=== PATIENT | female | born 1945 | race Caucasian/White ===

== ENCOUNTER 2017-04-03 16:13 | Inpatient (IN) | payer MEDICARE ==
[~2017-04-03] VITALS: Ht 152.4 cm; Wt 64.1 kg
[2017-04-04] MEDS ORDERED: HYDR25TA5 PO (10:16)
[2017-04-04] MEDS ORDERED: GABA100C4 PO (10:16)
[2017-04-04] MEDS ORDERED: LOSA100T PO (10:16)
[2017-04-04] MEDS ORDERED: ATOR40TA16 PO (10:16)
[2017-04-04] MEDS ORDERED: ASPI81TA11 PO (10:17)
[2017-04-04] MEDS ORDERED: CHOL5000 PO (10:19)
[2017-04-04] MEDS ORDERED: MULTTAB67 PO (10:19)
[2017-04-04] MEDS ORDERED: MILK175C7 PO (10:19)
[2017-04-04] MEDS ORDERED: CO Q100C9 PO (10:19)
[2017-04-07 06:24] VITALS: BP 128/69; PULSE 71; RESP 20; TEMP 98.6; O2SAT 99
[2017-04-07] MEDS ORDERED: ceFAZolin INJ 1,000 MG VIAL ONE (06:38)
[2017-04-07] MEDS ORDERED: SODIUM CHLORIDE 0.9% INJ 100 ML ONE (06:38)
[2017-04-07] MEDS ORDERED: HEPARIN SODIUM - SQ 10,000 UNITS/ML VIAL ONE (06:38)
[2017-04-07] MEDS ORDERED: SUGAMMADEX SODIUM 200 MG/2 ML VIAL IV PUSH ONE ×2 (06:51)
[2017-04-07] MEDS ORDERED: HYDROmorphone HCL PF 2 MG/ML VIAL ONE (06:51)
[2017-04-07] MEDS ORDERED: LACTATED RINGER'S 1000 ML IV PRN (07:00)
[2017-04-07] MEDS ORDERED: POVIDONE IODINE 5% (ANTISEPSIS KIT) 4 APPLICATIONS EACH NARE PRN (07:00)
[2017-04-07] MEDS ORDERED: SODIUM CHLORID 0.9% 500 ML IV PRN (07:00)
[2017-04-07] MEDS ORDERED: ceFAZolin 1,000 MG/NS 100 ML IV SCH ×2 (07:00)
[2017-04-07] MEDS ORDERED: METOPROLOL TARTRATE 25 MG TAB PO PRN (07:00)
[2017-04-07] MEDS ORDERED: INSULIN HUMAN REGULAR 1,000 UNITS/10 ML VIAL SQ PRN (07:00)
[2017-04-07] MEDS ORDERED: HEPARIN SODIUM - SQ 10,000 UNITS/ML VIAL SQ SCH (07:00)
[2017-04-07] MEDS ORDERED: CHLORHEXIDINE GLUCONATE 2 % 1 PACK (2 CLOTHS) TOPICAL PRN (07:00)
[2017-04-07] MEDS ORDERED: LIDOCAINE 1.5%/EPINEPHrine 1:200,000 PF SOLN 30 ML AMP INFIL ONE (08:29)
[2017-04-07] MEDS ORDERED: LACTATED RINGER'S 1000 ML INJ 2,000 ML IV ONE (12:00)
[2017-04-07] MEDS ORDERED: PROPOFOL 200 MG/20 ML AMP IV ONE (12:00)
[2017-04-07] MEDS ORDERED: ONDANSETRON HCL 4 MG/2 ML VIAL IV PUSH ONE (12:00)
[2017-04-07] MEDS ORDERED: PHENYLEPH/NS 1000 MCG/10 ML SYR IV ONE (12:00)
[2017-04-07] MEDS ORDERED: ePHEDrine/NS 25 MG/5 ML SYR IV ONE (12:00)
[2017-04-07] MEDS ORDERED: DO NOT ADM ANY ANTICOAGULANT DRUGS PRN (14:25)
[2017-04-07] MEDS ORDERED: diphenhydrAMINE HCL 25 MG CAP PO PRN (14:30)
[2017-04-07] MEDS ORDERED: LORazepam 0.5 MG TAB PO PRN (14:30)
[2017-04-07] MEDS ORDERED: ONDANSETRON HCL 4 MG/2 ML VIAL IVP PRN (14:30)
[2017-04-07] MEDS ORDERED: SODIUM CHLORIDE 0.9% FLUSH 10 ML FLUSH IV FLUSH PRN (14:30)
[2017-04-07] MEDS ORDERED: fentaNYL CITRATE 250 MCG/5 ML AMP ONE (14:38)
[2017-04-07] MEDS ORDERED: *morphine SULFATE 8 MG/ML PERIprocedure ONLY ONE (14:40)
[2017-04-07] MEDS: KETOROLAC TROMETHAMINE 30 MG/ML (IVP) VIAL IVP SCH ×2 (14:42→23:17)
[2017-04-07] MEDS ORDERED: *MEPERIDINE 25 MG INJ VIAL PERIprocedural Use ONLY ONE (14:49)
[2017-04-07] MEDS: D5-1/2 NS + KCL 20 MEQ INJ 1,000 ML IV SCH (15:09)
[2017-04-07 16:00] VITALS: BP 125/71; PULSE 85; RESP 15; TEMP 96.5; O2SAT 100
--- NOTE | 2017-04-07 16:36 | PD.ONC.PN ---
Subjective Subjective Remarks post op note pt is resting in bed states she is having some abdominal pain denies n/v using IS deng with clear yellow urine Objective Data Date Time Temp Pulse Resp B/P Pulse Ox O2 Delivery O2 Flow Rate FiO2 04/07/17 16:00 96.5 85 15 125/71 100 04/07/17 15:45 97.7 88 14 110/56 100 Nasal Cannula 2 04/07/17 15:30 90 13 112/59 100 Nasal Cannula 2 04/07/17 15:15 93 13 111/57 98 Nasal Cannula 2 04/07/17 15:00 95 12 115/52 100 Nasal Cannula 2 04/07/17 14:45 95 12 130/59 100 Nasal Cannula 2 04/07/17 14:30 100 21 119/56 100 Nasal Cannula 2 04/07/17 14:29 98.2 100 20 122/60 100 Nasal Cannula 2 04/07/17 06:24 98.6 71 20 128/69 99 04/07/17 04/07/17 04/07/17 06:59 14:59 22:59 Intake Total 2500 ml 284 ml Output Total 1020 ml 90 ml Balance 1480 ml 194 ml Laboratory Results Laboratory Tests Test 04/07/17 04/07/17 04/07/17 06:22 08:40 10:14 Blood Type O NEGATIVE O NEGATIVE O NEGATIVE Antibody Screen NEGATIVE Blood Bank Comment Crossmatch Leukocyte-Reduced Red Blood Cells Administered Medications Medications (Trade) Dose Ordered Sig/Alonso Route PRN Reason Start Time Stop Time Status Last Admin Dose Admin Potassium Chloride/Dextrose/ Sod Cl (D5-1/2 NS + KCl 20 Meq Inj) 1,000 ml @ 100 mls/hr Q10H IV 04/07/17 14:18 04/07/17 15:09 Ketorolac Tromethamine (Toradol Inj) 15 mg Q6H IVP 04/07/17 14:30 04/08/17 08:31 04/07/17 14:42 Objective Remarks GENERAL: Well-nourished, well-developed patient. SKIN: Warm and dry. HEAD: Normocephalic. EYES: No scleral icterus. No injection or drainage. CARDIOVASCULAR: Regular rate and rhythm without murmurs. RESPIRATORY: Breath sounds equal bilaterally. No accessory muscle use. GASTROINTESTINAL: Abdomen soft, nondistended, SS are c/d/i EXTREMITIES:TEDs MUSCULOSKELETAL: Adequate muscle tone. NEUROLOGICAL: No obvious focal deficit. Awake, alert, and oriented x3. PSYCHIATRIC: Appropriate mood and affect; insight and judgment normal. Assessment/Plan Problem List: (1) Ovarian cancer Status: Acute (2) Postoperative state Status: Acute Plan: S/P RA lap hyst with BSO and omentectomy post op orders are in the chart IS at bedside and pt using IVF ADAT, clear liquids at this time OK to get OOB to chair this evening Percocet and Toradol for pain anticipate discharge in the morning Lakisha Denney [facility] Apr 07, 2017 16:36
[2017-04-07] MEDS: oxyCODONE/ACETAMINOPHEN 5 MG/325 MG TAB PO PRN (16:56)
[2017-04-07 20:00] VITALS: BP 110/54; PULSE 85; RESP 16; TEMP 97.8; O2SAT 99
[2017-04-07] MEDS: SODIUM CHLORIDE 0.9% FLUSH 10 ML FLUSH IV FLUSH SCH (21:00)
[2017-04-07] MEDS: GABAPENTIN 100 MG CAP PO SCH (23:17)
[2017-04-08] VITALS: BP 107/56; PULSE 83; RESP 17; TEMP 96.9; O2SAT 99
[2017-04-08] MEDS: D5-1/2 NS + KCL 20 MEQ INJ 1,000 ML IV SCH ×3 (00:18→20:18)
[2017-04-08] MEDS: oxyCODONE/ACETAMINOPHEN 5 MG/325 MG TAB PO PRN ×6 (03:55→22:09)
[2017-04-08] MEDS: KETOROLAC TROMETHAMINE 30 MG/ML (IVP) VIAL IVP SCH ×2 (03:55→08:24)
[2017-04-08 04:00] VITALS: BP 94/53; PULSE 72; RESP 17; TEMP 96.5; O2SAT 100
[2017-04-08] MEDS ORDERED: OXYC1TAB63 PO (07:42)
[2017-04-08 07:43] LABS: AUTOMATED NEUTROPHIL # 5.1 TH/MM3 (1.8-7.7); BASOPHIL % 0.4 % (0.0-2.0); EOSINOPHIL % 0.1 % (0.0-4.0); HEMATOCRIT 28.3 % (35.0-46.0); HEMO FLAGS DIFF FINAL; LYMPH % 16.9 % (9.0-44.0); LYMPHOCYTE # 1.2 TH/MM3 (1.0-4.8); MEAN CELL VOLUME 90.1 FL (80.0-100.0); MEAN CORPUSCULAR HEMOGLOBIN 31.8 PG (27.0-34.0); MEAN CORPUSCULAR HGB CONC 35.3 % (32.0-36.0); MONO % 13.4 % (0.0-8.0); NEUT % 69.2 % (16.0-70.0); PLATELET COUNT 212 TH/MM3 (150-450); RED BLOOD COUNT 3.14 MIL/MM3 (4.00-5.30); RED CELL DISTRIBUTION WIDTH 13.7 % (11.6-17.2); WHITE BLOOD COUNT 7.4 TH/MM3 (4.0-11.0)
[2017-04-08 08:00] VITALS: BP 98/54; PULSE 70; RESP 18; TEMP 96.6; O2SAT 100
[2017-04-08 08:10] LABS: BICARBONATE 29.5 MEQ/L (21.0-32.0); POTASSIUM 3.5 MEQ/L (3.5-5.1)
[2017-04-08] MEDS: SODIUM CHLORIDE 0.9% FLUSH 10 ML FLUSH IV FLUSH SCH ×2 (08:24→22:09)
[2017-04-08] MEDS: ATORVASTATIN 40 MG TAB PO SCH (08:24)
[2017-04-08] MEDS: HYDROCHLOROTHIAZIDE 25 MG TAB PO SCH (08:44)
[2017-04-08] MEDS: LOSARTAN 50 MG TAB PO SCH (08:44)
[2017-04-08 12:00] VITALS: BP 97/56; PULSE 72; RESP 18; TEMP 97; O2SAT 99
[2017-04-08 16:00] VITALS: BP 110/55; PULSE 75; RESP 15; TEMP 96.8; O2SAT 98
[2017-04-08 20:00] VITALS: BP 99/52; PULSE 77; RESP 18; TEMP 97.4; O2SAT 97
[2017-04-08] MEDS: GABAPENTIN 100 MG CAP PO SCH (22:09)
[2017-04-09] VITALS: BP 107/54; PULSE 82; RESP 18; TEMP 97.8; O2SAT 97
[2017-04-09 04:00] VITALS: BP 131/61; PULSE 90; RESP 18; TEMP 97.7; O2SAT 96
[2017-04-09] MEDS: D5-1/2 NS + KCL 20 MEQ INJ 1,000 ML IV SCH ×2 (05:13→16:18)
[2017-04-09] MEDS: oxyCODONE/ACETAMINOPHEN 5 MG/325 MG TAB PO PRN ×3 (07:08→16:30)
--- NOTE | 2017-04-09 07:16 | PD.ONC.PN ---
Subjective Subjective Remarks POD #2 pt is sitting along side of the bed c/o abdominal pain has not had any Percocet since 10pm Spoke with RN and will evaluate later in regards to discharge educated pt on taking pain meds OTC before the pain becomes acute and the use of stool softeners while taking narcotics. 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 will get case management to arrange for HH to help with medication management, wound assessment and OT/PT Objective Data Date Time Temp Pulse Resp B/P Pulse Ox O2 Delivery O2 Flow Rate FiO2 04/09/17 04:00 97.7 90 18 131/61 96 04/09/17 00:00 97.8 82 18 107/54 97 04/08/17 20:00 97.4 77 18 99/52 97 04/08/17 16:00 96.8 75 15 110/55 98 04/08/17 12:00 97.0 72 18 97/56 99 04/08/17 08:00 96.6 70 18 98/54 100 04/09/17 04/09/17 04/09/17 07:00 15:00 23:00 Intake Total 600 ml Output Total 1000 ml Balance -400 ml Result Diagram: 04/08/1733 04/08/17632 Administered Medications Medications (Trade) Dose Ordered Sig/Alonso Route PRN Reason Start Time Stop Time Status Last Admin Dose Admin Atorvastatin Calcium (Lipitor) 40 mg DAILY PO 04/08/17 09:00 04/08/17 08:24 Gabapentin 100 mg 100 mg HS PO 04/07/17 21:00 04/08/17 22:09 Potassium Chloride/Dextrose/ Sod Cl (D5-1/2 NS + KCl 20 Meq Inj) 1,000 ml @ 100 mls/hr Q10H IV 04/07/17 14:18 04/08/17 00:18 Sodium Chloride (NS Flush) 2 ml BID IV FLUSH 04/07/17 21:00 04/08/17 22:09 Oxycodone/ Acetaminophen (Percocet 5-325 Mg) 1 tab Q4H PRN PO PAIN SCALE 1 TO 5 04/07/17 14:30 04/08/17 22:09 Oxycodone/ Acetaminophen (Percocet 5-325 Mg) 2 tab Q4H PRN PO PAIN SCALE 6 TO 10 04/07/17 14:30 04/09/17 07:08 Objective Remarks GENERAL: Well-nourished, well-developed patient in mild distress d/t abd pain SKIN: Warm and dry. HEAD: Normocephalic. EYES: No scleral icterus. No injection or drainage. CARDIOVASCULAR: Regular rate and rhythm without murmurs. RESPIRATORY: Breath sounds equal bilaterally. No accessory muscle use. GASTROINTESTINAL: Abdomen soft, generalized pain, SS are C/D/I EXTREMITIES: No cyanosis, or edema. MUSCULOSKELETAL: Adequate muscle tone. NEUROLOGICAL: No obvious focal deficit. Awake, alert, and oriented x3. PSYCHIATRIC: Appropriate mood and affect; insight and judgment normal. Assessment/Plan Problem List: (1) Ovarian cancer Status: Acute (2) Postoperative state Status: Acute Plan: POD #2 RA lap hyst with BSO and omentectomy post op orders are in the chart IS at bedside and pt using IVF regular diet Percocet OTC for pain will add Colace consult case management for to help with wound assessment, pt/ot, and medication management Lakisha Denney Apr 09, 2017 07:16
--- NOTE | 2017-04-09 07:30 | HHI.FF ---
Face to Face Verification Diagnosis: (1) Ovarian cancer (2) Postoperative state Physical Therapy Order: Evaluate and Treat Occupational Therapy Order: Evaluate and Treat, Improve ADL Instructions: Pt is post op and will need education on how to self transfer in and out of bed. Home Health Nursing Order: Medication education-adverse effect Wound care and dressing changes Home Health Aide Order: To Assist In: Bathing and personal care Senior Sales Manager Order: To Evaluate: Support services I have seen patient Bhargavi Briones on 04/09/17. 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 She has concerns about being able to recover from surgery and care for herself as well as taking care of her parents. Lakisha Denney Apr 09, 2017 07:29
[2017-04-09 08:34] VITALS: BP 129/61; PULSE 73; RESP 20; TEMP 97.5; O2SAT 98
[2017-04-09] MEDS: SODIUM CHLORIDE 0.9% FLUSH 10 ML FLUSH IV FLUSH SCH ×2 (09:00→12:22)
[2017-04-09] MEDS ORDERED: DOCUSATE SODIUM 100 MG CAP PO SCH (09:00)
[2017-04-09] MEDS: ATORVASTATIN 40 MG TAB PO SCH (09:22)
[2017-04-09] MEDS: HYDROCHLOROTHIAZIDE 25 MG TAB PO SCH (09:22)
[2017-04-09] MEDS: LOSARTAN 50 MG TAB PO SCH (09:22)
[2017-04-09] MEDS ORDERED: KETOROLAC TROMETHAMINE 60 MG/2 ML (IM) VIAL IM ONE (11:00)
[2017-04-09 12:07] VITALS: BP 109/52; PULSE 76; RESP 21; TEMP 96.5; O2SAT 98
[2017-04-09 16:09] VITALS: BP 110/61; PULSE 70; RESP 20; TEMP 97.9; O2SAT 97
--- NOTE | 2017-04-12 20:30 | MD ---
cc: FAB NEWMAN MD,MAVERICK OKEEFE,JONAH SHORT M.D. ADMISSION DATE: 04/07/2017 DISCHARGE DATE: 04/09/2017 PROCEDURE 04/07/2017 robotic-assisted laparoscopic hysterectomy, bilateral salpingo-oophorectomy, omentectomy, resection of tumor, right ureteral lysis for surgical management of ovarian cancer. HOSPITAL COURSE She did well early in hospitalization. She tolerated oral intake. Villafuerte catheter removed, voiding pending. Ins and outs 3624/2210. LABORATORY DATA H&H 10.0, 28.3. White count 7.4, platelets 212. Electrolytes pending. PHYSICAL EXAMINATION VITAL SIGNS: Afebrile, pulse 72-85, respirations 15-17, blood pressure 94-125 over 53-79, O2 saturations greater than 99%. GENERAL: Alert and oriented x3. LUNGS: Lungs are clear except for mild basilar rales. CARDIOVASCULAR: Paced, regular rate and rhythm. ABDOMEN: Soft. Incisions clean and dry. PIPELAYER: No bleeding. EXTREMITIES: Nontender. ASSESSMENT Postop day #1 doing well in early postop period. The response to chemotherapy thus far is reviewed. The findings at time of surgery and steps taken are discussed. Activities, restrictions reviewed. Questions were answered. She expressed good understanding. PLAN Anticipate she will meet criteria for discharge to home. She is to resume prior medications along with prescription for Percocet. She is to contact our office to schedule followup in two weeks or to contact us should she have any questions or problems in the interim. MD LOU Baxter/GONZÁLEZ /7:58 AM /8:19 PM
--- NOTE | 2017-04-15 08:02 | MP ---
cc: POP LINK MD,MAVERICK NEWMAN,FAB OLEARY,JONAH Leger M.D. DATE OF SURGERY 04/07/2017 PREOPERATIVE DIAGNOSIS 1. Ovarian cancer 2. Status post neoadjuvant chemotherapy POSTOPERATIVE DIAGNOSIS 1. Ovarian cancer 2. Status post neoadjuvant chemotherapy 3. Extensive pelvic and intraperitoneal adhesions PROCEDURE Debulking of ovarian cancer via robotic-assisted laparoscopic hysterectomy, bilateral salpingo-oophorectomy, and resection of the pelvic tumor, right ureterolysis, omentectomy and extensive lysis of adhesions. SURGEON Maverick Burroughs MD STICK FEEDER Mathews assistant to the president ANESTHESIA General endotracheal anesthesia ESTIMATED BLOOD LOSS 300 cc IV FLUIDS 2500 cc of crystalloid, one unit of platelets. URINE OUTPUT 720 cc HISTORY This is a 71-year-old female who presented with bilateral ovarian tumors, omental tumor, intraperitoneal carcinomatosis and ascites. A biopsy showed papillary serous adenocarcinoma, elevated CA-125, findings consistent most consistent with stage IIIC ovarian cancer. She received neoadjuvant Taxol and carboplatin chemotherapy and there has been marked reduction in her CA-125, resolution of ascites and decreased in the pelvic tumor burden. She has been counseled regarding the potential value of surgery. She is seen again in the preop holding area with findings. Plan of care are again reviewed. Questions were asked and answered. She expressed a good understanding and would like to move forward with surgery. FINDINGS There had been a notable response to chemotherapy in the peritoneal cavity. There are many areas of filmy adhesions that appeared to have probably been tumor implants that have responded to chemotherapy. There remains grossly visible tumor in the central omentum extending into the distal portion of the gastrocolic ligament. There are bands of adhesions to the anterior abdominal wall in the pelvis. The pelvic structures are still quite fixed. Essentially, there is a fixed block of tumor encasing the uterus, cervix, tubes and ovaries and surrounding structures. The right ureter is deviated in its course and is elevated and densely adherent to the posterolateral aspect of the right ovarian mass. The left ovary is approximately 8 cm. The right ovary is approximately 5 cm in dimension. At the conclusion of the case, the majority of the tumor was successfully removed. There were miliary implants on the diaphragm peritoneum ranging from 1-3 mm in size. There was a thin plaque of tumor approximately 1.5 cm in diameter per 5 mm thick in the central transverse colon where the tumor appears to be invading the wall of the colon. There was also a similar sized plaque and thickness of tumor in the sigmoid colon where this appears to be invading the wall of the colon, but the remainder of the grossly visible detectable disease was removed. STATEMENT OF COMPLEXITY/MODIFIER The complexity of this case was significantly increased due to the extensive adhesions especially in the pelvis requiring substantial additional time and effort in dissection to gain safe entry into the peritoneal cavity to restore normal anatomy and resect tumor to accomplish surgical objectives. A modifier should be applied accordingly. PROCEDURE She was taken to the operating room, placed in the dorsolithotomy position after general endotracheal anesthesia was administered. Time-out was undertaken. She was identified by sight recognition and hospital ID bracelet and the proposed procedure was reviewed and confirmed. She was carefully positioned in padded Trey stirrups. Her arms were padded and secured to the sides. She was further secured to the operating table with egg crate padding and tape in a cross chest over the shoulder fashion. All sites were noted be properly aligned with no malalignments or pressure points. She was prepped, draped in a sterile fashion, placed in lithotomy position. The cervix grasped, uterine cavity sounded to 7 cm. Standard V-Care manipulator inserted and secured in the usual fashion. Villafuerte catheter placed in the bladder. She was turned to low lithotomy position. A change of sterile gloves was undertaken. We confirmed there was an orogastric tube in the stomach on suction. With manual elevation of the abdominal wall and direct laparoscopic visualization, a 5 mm cannula was placed in the left upper quadrant. Carbon dioxide gas was insufflated and cannula was placed in the left lateral abdomen 8 mm through which a grasper and scissors were introduced to initiate lysis of adhesions. Then a 12 mm cannula was placed in the midline above the umbilicus, an 8-mm cannula placed in the right upper quadrant. She was placed in steep Trendelenburg position. Additional lysis of adhesions were carried out to help mobilize the bowel. The anatomy was surveyed with findings as described above. Three Ray-Leonel sponges were placed around the root of the small bowel mesentery. The robotic system brought into the operative field, attached in the usual fashion. Monopolar scissors, fenestrated bipolar forceps and Prograsp manipulators were placed in arms number one, two and three respectively and I took my place at the surgeon's console. Lysis of adhesions was carried out with sharp dissection to try to identify the structures as there was one central fixed bundle of tumor encasing the uterus, ovaries and surrounding structures. Retroperitoneal dissection was carried out on the right. The right round ligament was able to be identified where it was isolated, cauterized and transected. The anterior and posterior leafs of the broad ligament were opened and the infundibulopelvic ligament was isolated. The intervening peritoneum was opened. The ureter was identified posteriorly and the infundibulopelvic ligament was cauterized and transected. Attention was directed toward the left tube to facilitate dissection. Retroperitoneal dissection carried out along the left pelvic sidewall mobilizing the colon. The left round ligament was able to be identified, isolated, cauterized and transected. Retroperitoneal dissection was continued, but the tumor fixation was dense and the gonadal vessels could not yet be identified on the left. Sharp dissection was carried out to mobilize the left ovary and free its attachments to the uterus from the cul-de-sac as well as its attachments to the colon and colonic mesentery. This was carried out circumferentially with further retroperitoneal dissection and until the left utero-ovarian ligament was isolated. The utero-ovarian ligament was cauterized and transected. This allowed some retraction elevation on the ovary. Additional dissection was used to free the colon and mesentery from its attachments as the ovary was lifted and the gonadal vessels were lifted and dissected proximally. The ureter was identified posteriorly and the left gonadal vessels were then cauterized and transected and the left ovarian mass with tumor was placed in the right pericolic gutter for later retrieval. Additional cul-de-sac dissection was used to free the colon and colonic mesentery from the right ovary circumferentially until this allowed some mobility of the right ovary. The ureter was noted to be densely adherent as described above so ureterolysis was necessary. Sharp dissection and blunt dissection were used to peel the ureter and adjacent tissue off of its attachments to the posterolateral aspect of the right ovary and the ureter was dissected along its course in the pelvis. It was seen to be slightly dilated from the compression and the ureter was freed distally. Additional adhesions were lysed therefore allowing the right tube and ovary to be elevated left attached via the right utero-ovarian ligament. Posterior cul-de-sac was opened as dissecting the colon off the posterior uterus and cervix and then the vesicouterine peritoneum was dissected off the lower uterine segment and cervix anteriorly to allow access to the uterine vessels. The uterine vessels were skeletonized on the right, cauterized, then skeletonized on the left and cauterized. The left uterine vessels were transected and then the cardinal, paracervical, and uterosacral ligaments were isolated, cauterized and transected in a stepwise fashion thereby freeing the attachments along the left side of the uterus and cervix. Similarly on the right side, the cardinal, paracervical and uterosacral ligaments were isolated, cauterized and transected, freeing the attachments along the right side of the uterus and cervix and a colpotomy was performed. the cervix from the vagina, the specimen was withdrawn transvaginally which included uterus, cervix, right tube and ovary and tumor and then a Pneumooccluder balloon was placed in the vagina to maintain pneumoperitoneum. Inspection of the pelvis revealed some remaining peritoneal implants of tumor which were removed with sharp dissection until all visible tumor had been removed. The tumor implants were placed on the Ray-Leonel sponge with the left tube and ovary and 12 cm EndoCatch was introduced into the vagina and the left ovarian tumor, peritoneal implants and one Ray-Leonel were removed transvaginally. Instruments one at three exchanged for needle drivers as a 0 Vicryl suture was introduced. The vaginal cuff was closed starting at the left vaginal apex, secured to the uterosacral ligament, posterior peritoneum tied via instrument tie. The closure was held on countertraction as a running continuous closure was carried across the vaginal apex to the contralateral corner where it was similarly fixed, secured and tied. The needle was cut and removed. The integrity of the bladder was confirmed. A good margin between the edge of the bladder and the vaginal cuff suture line. Good peristalsis of ureters bilaterally. Attempts to initiate dissection of the omentum was challenging due to the steep Trendelenburg position and the high level of the omentum and tumor. The decision was made that the robotic instruments were removed. The robotic system was disengaged and the patient was returned to supine position and placed in slight reverse Trendelenburg. The robotic system was reattached and the instruments were reintroduced. This change in position helped position the tumor in a more reachable location with current port placement. Dissection was initiated. Nonvascular attachments to the transverse colon were taken down with sharp dissection and focal cautery. Vascular attachments were isolated, cauterized with bipolar cautery and transected. Tumor extended into the gastrocolic ligament so the inferior portion of the gastrocolic ligament were isolated with vascular attachments, cauterized and transected in a stepwise fashion. Dissection was continued to the toward the splenic flexure. The lateral corner of the tumor was identified, isolated, cauterized and transected to release the attachments and dissection was continued back toward the center where there was dense adherence between the central portion of the tumor and the transverse colon where it appeared to be invading at least into the serosa of the colon and the final attachments were removed was removed with sharp dissection the omentum portion of the gastrocolic ligament and tumor which was placed in the pelvis for later retrieval. Sharp dissection was used to further dissect this plaque of tumor down to within just a few millimeters of the wall of the colon as had been done similarly to the remaining tumor plaque on the sigmoid colon. This tumor was combined with the omentum. Sites were inspected, thoroughly irrigated, hemostatic agent was placed in the pelvis and in the abdomen. All sites were hemostatic. It was felt that all reasonable surgical objectives had been completed. Accordingly, the robotic instruments were removed. The robotic system was disengaged from the operative field. I reentered the bedside under sterile condition. The 12-mm fascial defect was extended sharply. A 15 cm EndoCatch bag was used to capture the omentum and tumor, brought to the abdominal wall and this was removed in pieces using ring forceps and tenaculums contained within the bag until the bag was able to be withdrawn through the incision. The two remaining Ray-Leonel sponges that were placed in the peritoneal cavity were removed. Each were inspected, noted to be removed in their entirety. Inspection of the peritoneal cavity revealed no remaining foreign objects. Preliminary counts were correct. The 12 mm fascial defect that had been extended was closed with interrupted 0 Vicryl sutures using a needle pass apparatus tied securely, rendered the fascia completely airtight and hemostatic. The remaining cannulas were withdrawn. Carbon dioxide gas was removed. 3-0 Vicryl subcutaneous, 3-0 Vicryl subcuticular, and Steri-Strips used to close these incisions. She was returned to dorsolithotomy position. Pelvic exam confirmed the vaginal cuff well supported and hemostatic. There were no vaginal lacerations. Some superficial irritation along the vaginal mucosa was noted and the remaining hemostatic Russ was placed in the vaginal mucosa. She was returned to dorsal supine position. Final counts were correct. She was pending reversal of anesthesia when I left the operating room to precede her to the Post Anesthesia Care Unit. MD LOU Baxter/ROSI /7:06 AM /7:33 AM
== END 2017-04-09 19:08 | disposition home or self-care (01) | DRG 738 ==
LOC: HSDI 04-07 05:15 → HOCA 04-07 15:59
PROVIDERS: ADMIT Obstetrics & Gynecology Gynecologic Oncology; ATTEND Obstetrics & Gynecology Gynecologic Oncology
PROC: 0UTC4ZZ Resection of Cervix, Percutaneous Endoscopic Approach (ICD-10-PCS; 2017-04-07)
PROC: 0DNW4ZZ Release Peritoneum, Percutaneous Endoscopic Approach (ICD-10-PCS; 2017-04-07)
PROC: 0DBW4ZZ Excision of Peritoneum, Percutaneous Endoscopic Approach (ICD-10-PCS; 2017-04-07)
PROC: 0DBS4ZZ (ICD-10-PCS; 2017-04-07)
PROC: 0UT74ZZ Resection of Bilateral Fallopian Tubes, Percutaneous Endoscopic Approach (ICD-10-PCS; 2017-04-07)
PROC: 0TN64ZZ Release Right Ureter, Percutaneous Endoscopic Approach (ICD-10-PCS; 2017-04-07)
PROC: 0UT24ZZ Resection of Bilateral Ovaries, Percutaneous Endoscopic Approach (ICD-10-PCS; 2017-04-07)
PROC: 8E0W4CZ Robotic Assisted Procedure of Trunk Region, Percutaneous Endoscopic Approach (ICD-10-PCS; 2017-04-07)
PROC: 0UT94ZZ Resection of Uterus, Percutaneous Endoscopic Approach (ICD-10-PCS; principal; 2017-04-07 07:05)
DX: C56.2 Malignant neoplasm of left ovary (principal); G62.9 Polyneuropathy, unspecified; C56.1 Malignant neoplasm of right ovary; N73.6 Female pelvic peritoneal adhesions (postinfective); Z92.21 Personal history of antineoplastic chemotherapy; I10 Essential (primary) hypertension; E78.5 Hyperlipidemia, unspecified; Z95.0 Presence of cardiac pacemaker; M54.9 Dorsalgia, unspecified
CPT/HCPCS: 36430; 80048; 85025; 86850; 86900; 86901; 86920; 88307; 94150; J0690; J1170; J1644; J1885; J2175; J2270; J2370; J2405; J3010; J3480; J7120; P9016; P9035